=== PATIENT | female | born 1945 | race Caucasian/White ===

== ENCOUNTER 2019-01-06 11:06 | Inpatient (IN) ==
[2019-01-06] MEDS ORDERED: SODIUM CHLORIDE 0.9% 1,000 ML IV STA (11:22)
[2019-01-06 11:52] LABS: Basophils # 0.1 10*3/uL (0.0-0.2); Eosinophils # 0.2 10*3/uL (0.0-0.87); Eosinophils % 1.5 % (0.00-10.9); Hematocrit 43.5 VOL% (35.7-47.0); Hemoglobin 13.9 GM/DL (12.0-16.0); Immature Granulocytes % 0.8 %; Immature Granulocytes Absolute 0.11 #; Lymphocytes # 1.6 10*3/uL (1.4-4.0); Lymphocytes % 11.9 % (21.3-54.2); Mean Platelet Volume 11.5 FL (9.6-12.0); Monocytes % 5.9 % (1.7-12.7); Neutrophils % 78.9 % (38.7-73.9); Platelet Count 461 T/CUMM (130-400); Red Blood Count 4.78 MC/CUMM (3.8-5.5); Red Cell Distribution Width 13.7 % (9.3-17.3); White Blood Count 13.7 T/CUMM (4-12)
[2019-01-06 12:02] LABS: PT Patient Result 10.9 SECS; Partial Thromboplastin Time 26.5 SECS (0-40)
[2019-01-06 12:13] LABS: ABG Base Excess -4.8 MMOL/L (-2.5-2.5); ABG HCO3 18.6 MMOL/L (20-26); ABG Oxygen Saturation 93.9 % (95-100); ABG PCO2 30.5 MM HG (35-48); ABG PH 7.403 (7.35-7.45); ABG PO2 73.2 MM HG (80-95); ABG TCO2 19.5 MMOL/L (23-27)
[2019-01-06 12:16] LABS: Albumin 3.2 G/DL (3.4-5.0); Calcium 8.8 MG/DL (8.5-10.1); Total Protein 6.9 G/DL (6.4-8.3)
[2019-01-06] MEDS ORDERED: ENOXAPARIN 80 MG/0.8 ML SYRINGE SUBCUT STA ×2 (12:39→13:13)
[2019-01-06] MEDS ORDERED: ETOMIDATE 20 MG/10 ML VIAL IV ONE (12:59)
[2019-01-06] MEDS ORDERED: MIDAZOLAM 100 MG in SODIUM CHLORIDE 0.9% 80 ML IV PRN (12:59)
[2019-01-06] MEDS ORDERED: MIDAZOLAM 2 MG/2 ML VIAL IV STA (12:59)
[2019-01-06] MEDS ORDERED: ROCURONIUM 100 MG/10 ML VIAL IV ONE (12:59)
[2019-01-06] MEDS ORDERED: ENOXAPARIN 80 MG/0.8 ML SYRINGE SUBCUT ONE (13:13)
[2019-01-06] MEDS ORDERED: HEPARIN/NACL 0.9% 2 UNITS/ML 500 ML IV ONE ×2 (13:18→15:27)
[2019-01-06] MEDS ORDERED: HYDROmorphone 2 MG/1 ML VIAL ONE (13:18)
[2019-01-06] MEDS ORDERED: LIDOCAINE 1% 20 ML VIAL ONE (13:18)
[2019-01-06] MEDS ORDERED: MIDAZOLAM 2 MG/2 ML VIAL ONE (13:18)
[2019-01-06] MEDS ORDERED: ALBUTEROL 2.5 MG/3 ML NEB RESP TX PRN (13:19)
[2019-01-06] MEDS ORDERED: ALTEPLASE 12 MG in SODIUM CHLORIDE 0.9% 240 ML IV SCH ×2 (13:30→15:00)
[2019-01-06] MEDS ORDERED: SODIUM CHLORIDE 0.9% 1,000 ML IV SCH (13:30)
[2019-01-06] MEDS ORDERED: ALTEPLASE IV ONE (14:00)
[2019-01-06] MEDS ORDERED: FAMOTIDINE 20 MG/2 ML VIAL IV SCH (14:00)
[2019-01-06] MEDS ORDERED: PHENYLEPHRINE 50 MG/5 ML VIAL ONE (14:26)
[2019-01-06 15:24] LABS: ABG Base Excess -12.8 MMOL/L (-2.5-2.5); ABG HCO3 14.1 MMOL/L (20-26); ABG PH 6.939 (7.35-7.45); ABG PO2 61.3 MM HG (80-95); ABG TCO2 23.4 MMOL/L (23-27)
[2019-01-06 15:48] LABS: ABG Base Excess -5.5 MMOL/L (-2.5-2.5); ABG HCO3 19.4 MMOL/L (20-26); ABG Oxygen Saturation 63.3 % (95-100); ABG PO2 48.5 MM HG (80-95); ABG TCO2 26.5 MMOL/L (23-27)
[2019-01-06 15:50] LABS: ABG PCO2 94.1 MM HG (35-48); ABG PH 7.077 (7.35-7.45)
[2019-01-06 16:11] LABS: ABG Base Excess 0.1 MMOL/L (-2.5-2.5); ABG HCO3 31.3 MMOL/L (20-26); ABG Oxygen Saturation 66.4 % (95-100); ABG PO2 49.4 MM HG (80-95); ABG TCO2 34.3 MMOL/L (23-27)
[2019-01-06 16:13] LABS: ABG PH 7.126 (7.35-7.45)
[2019-01-06 16:14] LABS: ABG PCO2 97.1 MM HG (35-48)
[2019-01-07 09:45] VITALS: BP 150/93
== END 2019-01-07 16:07 | disposition expired | DRG 208 ==
LOC: EDUNIT# → N.ED 11:06 → N.4W 13:15 → N.CC 13:19 → N.4W 19:31
PROVIDERS: ADMIT Internal Medicine Cardiovascular Disease; ATTEND Internal Medicine Cardiovascular Disease